=== PATIENT | male | born 1980 | race Caucasian/White ===

== ENCOUNTER 2018-07-26 12:56 | Emergency (ER) | payer OTHER ==
[~2018-07-26] VITALS: Ht 175.3 cm; Wt 83.9 kg
[~2018-07-26 12:56] MED LIST: ACULAR1 DROP OS; NORCO 5-325 TA1 EACH PO
[2018-07-26] MEDS ORDERED: PROTONIX20 MG PO (15:29)
== END 2018-07-26 15:39 | disposition home or self-care (01) ==
LOC: ED 12:56
DX: K92.2 Gastrointestinal hemorrhage, unspecified (principal)
CPT/HCPCS: 80053; 85025; 85610; 85730; 86850; 86900; 86901; 96361; 96374; 99283-25; C9113; J7030; J7040